=== PATIENT | male | born 1945 | race Caucasian/White ===

== ENCOUNTER 2017-04-19 09:36 | Day surgery (SDC) | payer MEDICARE ==
[~2017-04-19] VITALS: Ht 182.9 cm; Wt 97.5 kg
[~2017-04-19 09:36] MED LIST: ASPI-973 PO; CALC60CR2 TP; CARV25TA PO; CHOL100043 PO; DOXA4TAB2 PO; GLUC1CAP13 PO; Hydrocodone/Acetaminophen PO; LISI-567 PO; MAGN250T29 PO; NIAC500T21 PO; NITR0.4T6 SL; NPR500T PO; RANI150C4 PO; SIMV80TA4 PO; Sodium Chloride LOK Flush 10 mL Syringe IV PRN; fentaNYL-PF 50 mCg/mL 2 mL Inj IVPUSH PRN
[2017-04-19 10:05] VITALS: BP 125/82; PULSE 70; RESP 16; O2SAT 96
[2017-04-19] MEDS: 0.9% Sodium Chloride 1,000 ML IV SCH ×2 (10:13→10:49)
[2017-04-19 11:07] VITALS: BP 120/75; PULSE 72; RESP 16; O2SAT 97
[2017-04-19 11:17] VITALS: BP 129/86; PULSE 84; RESP 16; O2SAT 96
--- NOTE | 2017-04-19 15:10 | ENDO ---
[address] [address] ENDOSCOPY PROCEDURE PATIENT: DARIUSZ CARBAJAL : 1945 MR#: [id number] ADMIT: 04/19/2017 JOB ID: [id number] DATE: 04/19/2017 PROCEDURE: Colonoscopy. INDICATIONS: Screening. The patient's ASA classification is 2. Mallampati score is 2. MEDICATIONS: 1. Versed 4 mg. 2. Fentanyl 100 mcg. INSTRUMENT USED: PCF H 180 AL. PREPARATION QUALITY: Was fair. PROCEDURE DETAILS: After informed consent was obtained, the patient was brought into the GI suite, where he was placed on oxygen via nasal cannula and monitored with continuous pulse oximeter, telemetry and blood pressure monitoring. A time-out was performed. Then, he was placed in the left lateral decubitus position and medications were administered for sedation. Digital rectal examination was performed, which was unremarkable. The colonoscope was then inserted into the rectum and advanced under direct visualization to the cecum, which was identified by the presence of the ileocecal valve and appendiceal orifice. Once the cecum was reached, the colonoscope was withdrawn back into the rectum and mucosa and lumen were examined. In the rectum, retroflexion was performed. Following retroflexion, remaining air in the rectum was suctioned, and procedure was completed. FINDINGS: 1. Scattered diverticula were seen throughout the entire colon. 2. Retroflexed views in the rectum revealed prominent anal papillae as well as internal hemorrhoids. IMPRESSION: 1. Pandiverticulosis. 2. Prominent anal papillae. 3. Internal hemorrhoids. RECOMMENDATIONS: 1. Fiber rich diet. 2. Repeat colonoscopy in 10 years, sooner if symptoms should dictate. COMPLICATIONS: None. ESTIMATED BLOOD LOSS: 0.
== END 2017-04-19 23:59 | disposition home or self-care (01) ==
LOC: END 09:36
PROVIDERS: ATTEND Internal Medicine Gastroenterology
DX: Z12.11 Encounter for screening for malignant neoplasm of colon (principal); E78.5 Hyperlipidemia, unspecified; I10 Essential (primary) hypertension; R73.03 Prediabetes; I25.10 Atherosclerotic heart disease of native coronary artery without angina pectoris; L40.9 Psoriasis, unspecified; I47.1 Supraventricular tachycardia; I34.0 Nonrheumatic mitral (valve) insufficiency; K57.30 Diverticulosis of large intestine without perforation or abscess without bleeding; K64.8 Other hemorrhoids; Z79.82 Long term (current) use of aspirin; Z95.5 Presence of coronary angioplasty implant and graft; I25.2 Old myocardial infarction
CPT/HCPCS: G0121; G0500; J7030